=== PATIENT | female | born 1935 | race American Indian/Alaskan Native ===

== ENCOUNTER 2017-06-29 00:54 | Emergency (ER) | payer MEDICARE ==
--- NOTE | 2017-06-29 01:38 | Emergency Department Report ---
ED CPR HPI - General Stated Complaint: CARDIAC ARREST Time Seen by Provider: 06/29/17 01:32 - History of Present Illness Initial Comments: Patient is 81 years old female brought into the ER in a full cardiac arrest CPR in progress. Per EMS report patient was lethargic and as soon as they started to assess her she collapsed with no spontaneous breathing and no pulse with initial rhythm showing asystole. ACLS protocol was started. By the time she arrived into the ER patient is in asystole, ACLS continued, patient immediately intubated by me, external jugular vein cannulated by me. Patient reviewed showed PEA, able to get out of pulse back but unfortunately patient lost her pulse again and he she went into asystole. Patient pronounced at 1:30 AM. For further information please refer to code sheet. The family stated that patient was recently discharged from [facility] after she had pulmonary embolism, family stated that she refused to take her medication and she refused to eat also. Initial blood glucose was 48 patient receive Dextrose 50. MD Complaint: stopped breathing, collapsed during rest Place: home Bystander CPR Performed: No AED Applied by Bystander/Compressed Gas Equipment Mechanic: No Shock Advised: No Initial Findings in the Field: unresponsive, no respirations, no pulse, systole ROSC in the Field: No Associated Injuries: No Associated Symptoms: shortness of breath - Related Data Previous Rx's Medication Instructions Recorded Last Taken Type ALBUTEROL Inhaler [ProAir HFA 2 puff IH Q4H PRN #1 pump 11/03/14 Unknown Rx Inhaler] Aspirin [Aspirin BABY CHEW TAB] 81 mg PO DAILY #30 tab.chew 11/03/14 Unknown Rx Carvedilol [Coreg] 3.125 mg PO BID #60 tablet 11/03/14 Unknown Rx Famotidine [Pepcid] 20 mg PO BID #60 tablet 11/03/14 Unknown Rx Metolazone [Zaroxolyn] 2.5 mg PO Q72H #10 tablet 11/03/14 Unknown Rx Torsemide [Demadex] 20 mg PO QAM #30 tablet 11/03/14 Unknown Rx glipiZIDE [Glucotrol] 2.5 mg PO QDAY #30 tablet 11/03/14 Unknown Rx Allergies Allergy/AdvReac Type Severity Reaction Status Date / Time codeine Allergy Swelling Verified 10/23/14 17:53 ED Review of Systems ROS: Stated complaint: CARDIAC ARREST Other details as noted in HPI Comment: Unobtainable due to pts medical conditions ED Past Medical Hx - Past Medical History Hx Hypertension: Yes Hx Heart Attack/AMI: No Hx Congestive Heart Failure: Yes Hx Diabetes: Yes (IDDM) Hx Deep Vein Thrombosis: No Hx Pulmonary Embolism: No Hx GERD: No Hx Liver Disease: No Hx Renal Disease: No Hx Arthritis: Yes Hx Headaches / Migraines: No Hx Seizures: No Hx Kidney Stones: No Hx Asthma: No Hx COPD: No Hx Tuberculosis: No Hx Dementia: No - Surgical History Hx Coronary Stent: No Hx Pacemaker: No Hx Internal Defibrillator: No Additional Surgical History: back and neck surgery - Social History Smoking Status: Never Smoker - Medications Home Medications: Home Medications Medication Instructions Recorded Confirmed Last Taken Type ALBUTEROL Inhaler [ProAir HFA 2 puff IH Q4H PRN #1 pump 11/03/14 Unknown Rx Inhaler] Aspirin [Aspirin BABY CHEW TAB] 81 mg PO DAILY #30 tab.chew 11/03/14 Unknown Rx Carvedilol [Coreg] 3.125 mg PO BID #60 tablet 11/03/14 Unknown Rx Famotidine [Pepcid] 20 mg PO BID #60 tablet 11/03/14 Unknown Rx Metolazone [Zaroxolyn] 2.5 mg PO Q72H #10 tablet 11/03/14 Unknown Rx Torsemide [Demadex] 20 mg PO QAM #30 tablet 11/03/14 Unknown Rx glipiZIDE [Glucotrol] 2.5 mg PO QDAY #30 tablet 11/03/14 Unknown Rx ED Physical Exam - General General appearance: other (CPR in progress) - Head Head exam: Present: atraumatic, normocephalic, normal inspection - Eye Eye exam: Present: other (4 mm fixed and dilated) - ENT ENT exam: Present: normal exam - Neck Neck exam: Present: normal inspection - Respiratory Respiratory exam: Present: other (intubated) - Cardiovascular Cardiovascular Exam: Present: other (no pulse, no heart tone.) - Neurological Exam Neurological exam: Present: other (intubated) - Skin Skin exam: Present: warm, intact - Intubation Time Out Performed: Yes Sedative: none Laryngoscope: Enma Size: 3 ET Tube Size: 7.5 Tube Secured Location: teeth Tube Placement Confirmation: visualized tube passing t, equal breath sounds bilat, no breath sounds over epi, confirmation by capnometr Patient Tolerated Procedure: well, no complications Intubation Complications: none Critical Care Time: Yes (35) Critical care attestation.: If time is entered above; I have spent that time in minutes in the direct care of this critically ill patient, excluding procedure time. ED Disposition Clinical Impression: Cardiopulmonary arrest Disposition: DC-20 Is pt being admited?: No Condition: Stable Referrals: PRIMARY CARE, [Primary Care Provider] - 3-5 Days
[2017-06-29] MEDS ORDERED: [UNRECOGNIZED DRUG - OTHER] IV ONE (06:30)
[2017-06-29] MEDS ORDERED: ADRENALIN ONE (06:30)
[2017-06-29] MEDS ORDERED: INTROPIN DRIP 800 MG/D5W 250 ML IV ONE (06:30)
== END 2017-06-29 03:22 ==
LOC: ED 00:54
DX: I46.9 Cardiac arrest, cause unspecified (principal); I10 Essential (primary) hypertension; I50.9 Heart failure, unspecified; E11.9 Type 2 diabetes mellitus without complications
CPT/HCPCS: 31500; 92950; 99285; J0171; J1265